=== PATIENT | female | born 1945 | race Caucasian/White ===

== ENCOUNTER 2020-03-27 17:29 | Emergency (ER) | payer OTHER ==
[~2020-03-27] VITALS: Ht 165.1 cm; Wt 65.8 kg
[2020-03-27] MEDS ORDERED: SILVER NITRATE-POTAS NITRA STICK TOP ONE (18:00)
[2020-03-27] MEDS ORDERED: COCAINE HCL 4% TOP SOL 4ML TOP ONE (18:00)
[2020-03-27] MEDS ORDERED: OXYMETAZOLINE HCL 0.05 % NASAL SPRAY 15ML EACHNOSTRI ONE (18:15)
[2020-03-27 18:49] VITALS: BP 168/70
[2020-03-27 18:55] LABS: Lymphocytes # (auto) 1.2 10 ^3/uL (0.4-5.4)
[2020-03-27 18:56] LABS: Basophils # (auto) 0.5 10 ^3/uL (0-0.2); Basophils % (auto) 7.6 % (0.0-2.0); Eosinophils # (auto) 0.5 10 ^3/uL (0-0.8); Eosinophils % (auto) 8.7 % (0.0-7.0); Hematocrit 46.6 % (36.0-46.0); Hemoglobin 14.9 g/dL (12.2-16.2); Lymphocytes % (auto) 19.9 % (10.0-50.0); Mean Corpuscular Hemoglobin 26.4 pg (28.0-32.0); Mean Corpuscular Hgb Conc. 31.9 g/dL (32.0-36.0); Mean Corpuscular Volume 82.7 fL (80.0-100.0); Monocytes # (auto) 0.5 10 ^3/uL (0-1.3); Monocytes % (auto) 8.4 % (0.0-12.0); Neutrophils # (auto) 3.4 10 ^3/uL (1.6-8.6); Neutrophils % (auto) 55.4 % (37.0-80.0); Platelet Count (auto) 428 10^3/uL (140-450); Red Blood Cells 5.64 10^6/uL (4.0-5.20); Red Cell Distribution Width 19.2 % (11.8-14.3); White Blood Cell 6.1 10^3/uL (4.4-10.8)
[2020-03-27 19:09] LABS: INR 3.27 (0.9-1.15)
[2020-03-27 19:10] LABS: Albumin 3.3 g/dL (3.4-5.0)
[2020-03-27 19:13] LABS: Bilirubin, Total 0.3 mg/dL (0.2-1.0); Total Protein 6.2 g/dL (6.4-8.2)
== END 2020-03-27 19:33 | disposition home or self-care (01) ==
LOC: ER 17:29
DX: R04.0 Epistaxis (principal); I10 Essential (primary) hypertension
CPT/HCPCS: 36415; 80053; 85025; 85610